=== PATIENT | female | born 1965 | race Caucasian/White ===

== ENCOUNTER 2017-03-07 17:07 | Emergency (ER) | payer BC ==
[~2017-03-07 17:07] MED LIST: ANTIVERT PO; DIAZEPAM PO; NO MEDICATIONS; OMNICEF PO
[2017-03-07] MEDS ORDERED: BP PILL (17:20)
[2017-03-07] MEDS ORDERED: METFORMIN (17:20)
[2017-03-07] MEDS ORDERED: ALLERGY MED (17:20)
== END 2017-03-07 17:45 | disposition home or self-care (01) ==
LOC: SED 17:07
DX: L03.011 Cellulitis of right finger (principal); E11.9 Type 2 diabetes mellitus without complications; I10 Essential (primary) hypertension
CPT/HCPCS: 99283